=== PATIENT | female | born 1985 | race American Indian/Alaskan Native ===

== ENCOUNTER 2017-11-29 08:29 | Emergency (ER) | payer SELFPAY ==
[2017-11-29 08:40] VITALS: BP 156/109
[2017-11-29] MEDS ORDERED: MARCAINE 0.25% INFILTRATI ONE ×2 (09:36→11:42)
--- NOTE | 2017-11-29 10:32 | Emergency Department Report ---
ED Extremity Problem HPI - General Chief complaint: Extremity Injury, Upper Stated complaint: RIGHT THUMB PAIN Time Seen by Provider: 11/29/17 09:24 Source: patient Mode of arrival: Ambulatory Limitations: No Limitations - History of Present Illness Initial comments: Patient is a 32-year-old black female who states at work approximately 2 weeks ago she smacked her right thumbs fingernail. The patient states that on the corner was pulled off slightly's she pulled the rest way off and progressively has noted increased swelling to the thumb. Patient states has been no drainage. Patient states pain is a 6 out of 10 in severity as throbbing. Patient denies any fevers nausea vomiting diarrhea at this time. - Related Data Previous Rx's Medication Instructions Recorded Last Taken Type Clindamycin [Clindamycin CAP] 300 mg PO Q8H 7 Days cap 11/29/17 Unknown Rx HYDROcodone/APAP 5-325 [[place] 1 each PO Q6HR PRN #15 tablet 11/29/17 Unknown Rx 5/325] Ibuprofen [Motrin] 800 mg PO Q8HR PRN #20 tablet 11/29/17 Unknown Rx Allergies Allergy/AdvReac Type Severity Reaction Status Date / Time No Known Allergies Allergy Unverified 11/29/17 08:40 ED Review of Systems ROS: Stated complaint: RIGHT THUMB PAIN Other details as noted in HPI Comment: All other systems reviewed and negative ED Past Medical Hx - Past Medical History Hx Hypertension: Yes - Surgical History Past Surgical History?: No - Social History Smoking Status: Never Smoker - Medications Home Medications: Home Medications Medication Instructions Recorded Confirmed Last Taken Type Clindamycin [Clindamycin CAP] 300 mg PO Q8H 7 Days cap 11/29/17 Unknown Rx HYDROcodone/APAP 5-325 [[place] 1 each PO Q6HR PRN #15 tablet 11/29/17 Unknown Rx 5/325] Ibuprofen [Motrin] 800 mg PO Q8HR PRN #20 tablet 11/29/17 Unknown Rx ED Physical Exam - General Limitations: No Limitations General appearance: alert, in no apparent distress - Head Head exam: Present: atraumatic, normocephalic - Eye Eye exam: Present: normal appearance - ENT ENT exam: Present: mucous membranes moist - Neck Neck exam: Present: normal inspection - Respiratory Respiratory exam: Present: normal lung sounds bilaterally. Absent: respiratory distress, wheezes, rales, rhonchi - Cardiovascular Cardiovascular Exam: Present: regular rate, normal rhythm. Absent: systolic murmur, diastolic murmur, rubs, gallop - GI/Abdominal GI/Abdominal exam: Present: soft, normal bowel sounds. Absent: distended, tenderness, guarding, rebound - Extremities Exam Extremities exam: Absent: normal inspection (agents right thumb is swollen for some mild erythema and warmth to the pad of the finger and around the nail there is some fluctuance.) - Back Exam Back exam: Present: normal inspection - Neurological Exam Neurological exam: Present: alert, oriented X3 - Psychiatric Psychiatric exam: Present: normal affect, normal mood - Skin Skin exam: Present: warm, dry, intact, normal color. Absent: rash ED Course Vital Signs 11/29/17 08:37 Temperature 98.2 F Pulse Rate 87 Respiratory 16 Rate Blood Pressure 156/109 O2 Sat by Pulse 100 Oximetry - I & D Right Finger Type of Procedure: Simple Blade Size: 11 I & D Procedure: betadine prep, sterile drapes applied, sterile dressing applied , gauze wick placed Progress: Patient had a single stab into the pad of the finger laterally to check for a felon. Patient did not have any drainage in this area however when turning the blade closer to the area of fluctuance there was a good amount of purulent material drained. Critical care attestation.: If time is entered above; I have spent that time in minutes in the direct care of this critically ill patient, excluding procedure time. ED Disposition Clinical Impression: Paronychia Disposition: DC-01 TO HOME OR SELFCARE Is pt being admited?: No Does the pt Need Aspirin: No Condition: Stable Instructions: Abscess Incision and Drainage (ED), Abscess (ED) Forms: Work/School Release Form(ED)
== END 2017-11-29 10:35 | disposition home or self-care (01) ==
LOC: ED 08:29
DX: L03.011 Cellulitis of right finger (principal); I10 Essential (primary) hypertension

== ENCOUNTER 2020-12-25 08:22 | Emergency (ER) | payer SELFPAY ==
--- NOTE | 2020-12-25 09:43 | Emergency Department Report ---
ED Eye Problem HPI - General Chief complaint: Eye Problems Stated complaint: EYE PAINS Time Seen by Provider: 12/25/20 09:42 Source: patient Mode of arrival: Ambulatory Limitations: No Limitations - History of Present Illness Initial comments: Patient is a 35-year-old -[place]iss female that comes to the ER today with bilateral eye irritation and redness. She denies any trauma. Patient denies being around any children that were ill. She denies recent upper respiratory infection. She denies any contact with an allergen. She states that she does have seasonal rhinitis. Patient does not wear contact lenses. Although she told the triage nurse she had vision changes she denied that to me. Her globe is intact there is been no trauma EOMs are intact. There is no drainage. Patient states she did have some matting on awakening this morning. And that is why she did not go to work and she came to the emergency room. Patient's blood pressure noted to be elevated in triage. She states that in the past she has been told she had hypertension but she is on no medications. She states that she lost her insurance and has not followed up. She denies any chest pain or shortness of breath. Denies any headaches. She is neurologically intact. Patient is requesting a work note for today chief complaint: eye redness -: Gradual, days(s) If Injury: none Severity: mild Associated Symptoms: none Treatments Prior to Arrival: none - Related Data Patient Tetanus UTD: Yes Previous Rx's Medication Instructions Recorded Last Taken Type Polymyxin B Sulf/Trimethoprim 1 drop OP QID #1 bottle 12/25/20 Unknown Rx [Polytrim Eye Drops 85701yydxs/0.1%] Allergies Allergy/AdvReac Type Severity Reaction Status Date / Time No Known Allergies Allergy Unverified 11/29/17 08:40 ED Review of Systems ROS: Stated complaint: EYE PAINS Other details as noted in HPI Comment: All other systems reviewed and negative ED Past Medical Hx - Past Medical History Previous Medical History?: Yes Hx Hypertension: Yes - Surgical History Past Surgical History?: Yes Additional Surgical History: TL - Social History Smoking Status: Never Smoker - Medications Home Medications: Home Medications Medication Instructions Recorded Confirmed Last Taken Type Polymyxin B Sulf/Trimethoprim 1 drop OP QID #1 bottle 12/25/20 Unknown Rx [Polytrim Eye Drops 85823onqdt/0.1%] ED Physical Exam - General Limitations: No Limitations General appearance: alert, in no apparent distress - Head Head exam: Present: atraumatic, normocephalic - Eye Eye exam: Present: normal appearance, PERRL, EOMI - Expanded Eye Exam Expanded Eyelids: Normal Inspection: Right Pupils: Regular, Round: Right Sclera/Conjunctival: Normal Inspection: Bilateral (Mild conjunctivitis), Exudate: Bilateral (No drainage) - ENT ENT exam: Present: mucous membranes moist - Neck Neck exam: Present: normal inspection - Respiratory Respiratory exam: Present: normal lung sounds bilaterally. Absent: respiratory distress - Cardiovascular Cardiovascular Exam: Present: regular rate, normal rhythm. Absent: systolic murmur, diastolic murmur, rubs, gallop - GI/Abdominal GI/Abdominal exam: Present: soft, normal bowel sounds - Extremities Exam Extremities exam: Present: normal inspection - Back Exam Back exam: Present: normal inspection - Neurological Exam Neurological exam: Present: alert, oriented X3 - Psychiatric Psychiatric exam: Present: normal affect, normal mood - Skin Skin exam: Present: warm, dry, intact, normal color. Absent: rash ED Course Vital Signs 12/25/20 12/25/20 08:37 09:56 Temperature 98.3 F Pulse Rate 75 Respiratory 18 Rate Blood Pressure 171/108 186/98 [Right] O2 Sat by Pulse 100 Oximetry ED Medical Decision Making - Medical Decision Making Vital Signs 12/25/20 12/25/20 08:37 09:56 Temperature 98.3 F Pulse Rate 75 Respiratory 18 Rate Blood Pressure 171/108 186/98 [Right] O2 Sat by Pulse 100 Oximetry Repeat blood pressure on discharge is noted to be lowered, this is without intervention. I have had a long discussion with the patient about her blood pressure and she is to monitor it. We have discussed diet activity and hydration. We have also discussed the consequences of untreated prolonged hypertension. She verbalizes understanding. Patient being discharged home with polymyxin for her eye irritation. Have given her referral to ophthalmology should she need it. Patient discharged home. She is nonill nontoxic afebrile: Ambulatory and taking p.o. on discharge. She verbalizes understanding of discharge plan of care including monitoring her blood pressure - Differential Diagnosis Conjunctivitis: Allergic, viral, bacterial Critical care attestation.: If time is entered above; I have spent that time in minutes in the direct care of this critically ill patient, excluding procedure time. ED Disposition Clinical Impression: Conjunctivitis, Elevated blood pressure reading Disposition: DC- TO HOME OR SELFCARE Is pt being admited?: No Does the pt Need Aspirin: No Condition: Stable Instructions: Hypertension, Adult, [id number] Additional Instructions: LOW FAT AND LOW SALT DIET WALK DAILY FOLLOW YOUR BLOOD PRESSURE- ELEVATED TODAY PCP REFERRAL BELOW MED ORDERED TODAY FOR YOUR EYES IF IRRITATION PERSISTS FOLLOW UP WITH EYE ME REFERRAL BELOW Prescriptions: Polymyxin B Sulf/Trimethoprim [Polytrim Eye Drops 50214rkzyw/0.1%] 1 drop OP QID #1 bottle Referrals: YARITZA LINDER MD [Staff Physician] - 3-5 Days AUBREE CONDON MD [Staff Physician] - 3-5 Days Time of Disposition: 09:44
[2020-12-25 09:56] VITALS: BP 186/98
== END 2020-12-25 10:32 | disposition home or self-care (01) ==
LOC: ED 08:22
DX: H10.9 Unspecified conjunctivitis (principal); R03.0 Elevated blood-pressure reading, without diagnosis of hypertension; I10 Essential (primary) hypertension; Z79.899 Other long term (current) drug therapy
CPT/HCPCS: 99283

== ENCOUNTER 2021-05-03 12:57 | Emergency (ER) | payer SELFPAY ==
[2021-05-03 13:15] VITALS: BP 165/107
[2021-05-03] MEDS ORDERED: traMADol 50 MG TAB PO ONE (13:28)
[2021-05-03] MEDS ORDERED: IBUPROFEN 800 MG TAB PO ONE (13:28)
--- NOTE | 2021-05-03 13:34 | Emergency Department Report ---
ED Extremity Problem HPI - General Chief complaint: Extremity Injury, Lower Stated complaint: RT ANKLE SWOLLEN Time Seen by Provider: 05/03/21 13:19 Source: patient Mode of arrival: Ambulatory Limitations: No Limitations - History of Present Illness Initial comments: 36-year-old female, history of hypertension, presents to ED with right ankle swelling and pain. Patient states she has had some swelling in the inner aspect of the right ankle for several months, however 2 days ago, she states the ankle became diffusely swollen, with onset of pain. She denies any acute injury or any previous injury in the past. She denies any fever. MD Complaint: extremity pain, extremity swelling -: days(s) (2) Location: right, other (Ankle) -: No myalgia, Yes arthralgia, No fever, No associated dyspnea, No associated chest pain Radiation: none Quality: aching Consistency: constant Improves with: immobilization Worsens with: weight bearing, palpation Associated Symptoms: denies: chest pain, fever, myalgias - Related Data Previous Rx's Medication Instructions Recorded Last Taken Type Polymyxin B Sulf/Trimethoprim 1 drop OP QID #1 bottle 12/25/20 Unknown Rx [Polytrim Eye Drops 68869huncf/0.1%] Naproxen [Naprosyn] 500 mg PO BID #20 tablet 05/03/21 Unknown Rx traMADoL [Ultram] 50 mg PO Q6HR PRN #7 tablet 05/03/21 Unknown Rx Allergies Allergy/AdvReac Type Severity Reaction Status Date / Time No Known Allergies Allergy Verified 05/03/21 13:15 ED Review of Systems ROS: Stated complaint: RT ANKLE SWOLLEN Other details as noted in HPI Comment: All other systems reviewed and negative Constitutional: denies: fever Respiratory: denies: shortness of breath Cardiovascular: denies: chest pain Musculoskeletal: joint swelling, arthralgia ED Past Medical Hx - Past Medical History Previous Medical History?: Yes Hx Hypertension: Yes - Surgical History Additional Surgical History: TL - Social History Smoking Status: Never Smoker - Medications Home Medications: Home Medications Medication Instructions Recorded Confirmed Last Taken Type Polymyxin B Sulf/Trimethoprim 1 drop OP QID #1 bottle 12/25/20 Unknown Rx [Polytrim Eye Drops 14705rquen/0.1%] Naproxen [Naprosyn] 500 mg PO BID #20 tablet 05/03/21 Unknown Rx traMADoL [Ultram] 50 mg PO Q6HR PRN #7 tablet 05/03/21 Unknown Rx ED Physical Exam - General Limitations: No Limitations General appearance: alert, in no apparent distress, obese - Head Head exam: Present: atraumatic, normocephalic - Eye Eye exam: Present: normal appearance, EOMI - ENT ENT exam: Present: mucous membranes moist - Neck Neck exam: Present: normal inspection - Respiratory Respiratory exam: Present: normal lung sounds bilaterally. Absent: respiratory distress - Cardiovascular Cardiovascular Exam: Present: regular rate, normal rhythm - GI/Abdominal GI/Abdominal exam: Absent: distended - Extremities Exam Extremities exam: Present: other (Swelling to right ankle present, tenderness to palpation, no erythema or induration present; no tenderness to the remainder of the foot or toes) - Neurological Exam Neurological exam: Present: alert, oriented X3 - Psychiatric Psychiatric exam: Present: normal affect, normal mood - Skin Skin exam: Present: warm, dry, intact, normal color ED Course Vital Signs 05/03/21 05/03/21 13:14 13:33 Temperature 99.4 F Pulse Rate 82 Respiratory 16 16 Rate Blood Pressure 165/107 [Right] O2 Sat by Pulse 99 Oximetry - Reevaluation(s) Reevaluation #1: 05/03/21 15:46 Spoke with test lab technician. States ESR was done and result is 30. Normal is 0-20. Not sure why result is not crossing over into [facility]. - Consultations Consultation #1: 05/03/21 15:[address] Smith regarding patient's case. I informed him of lab results, temp of 99.4, inability to obtain fluid from the ankle. He is not convinced that patient has septic arthritis. Recommends discharge with splint and crutches. Weightbearing as tolerated. We will see patient in office for possible cortisone injection. - Joint Aspiration/Injection Consent Obtained: verbal consent Indications: R/O septic arthritis Side of Body: right Joint Aspirated: ankle Ultrasound Guidance: No Skin Prep: sterile prep and drape Local Anesthesia Used: Lidocaine 1% Amount of Anesthesia Used (mls): 3 Needle Size Used: 18G Total Fluid Obtained (mls): 0 Patient Tolerated Procedure: well Complications: other (unable to obtain any fluid) ED Medical Decision Making - Lab Data Result diagrams: 05/03/21 13:58 05/03/21 13:58 - Radiology Data Radiology results: report reviewed, image reviewed - Medical Decision Making 36-year-old female with right ankle pain and swelling, nontraumatic. X-ray is unremarkable, no joint pathology present. There was some concern for possible septic joint as patient has a low-grade temp of 99 upon arrival. WBC is normal. ESR and CRP slightly elevated. Uric acid is normal. Spoke with Yana Castillo. States patient can follow-up in office. DC with crutches and splint. - Differential Diagnosis Osteoarthritis, septic arthritis, gout Critical care attestation.: If time is entered above; I have spent that time in minutes in the direct care of this critically ill patient, excluding procedure time. ED Disposition Clinical Impression: Acute right ankle pain Disposition: 01 HOME / SELF CARE / HOMELESS Is pt being admited?: No Condition: Stable Instructions: Ankle Pain Prescriptions: Naproxen [Naprosyn] 500 mg PO BID #20 tablet traMADoL [Ultram] 50 mg PO Q6HR PRN #7 tablet PRN Reason: Pain Referrals: SALLY SMITH MD [Staff Physician] - [facility] Time of Disposition: 15:53
--- NOTE | 2021-05-03 14:05 | XRay Report ---
LEFT ANKLE 3 VIEWS INDICATION: pain, swelling. COMPARISON: None. IMPRESSION: There is moderate to severe diffuse soft tissue swelling or edema. Normal bone minerali zation. No acute osseous abnormality or joint pathology is detected. Large plantar spur is noted. Signer Name: Momo Sullivan Jr, MD Signed: 05/03/2021 2:00 PM Workstation Name: [id number]
[2021-05-03 14:21] LABS: Basophils % (Auto) 0.3 % (0.0-1.8); Eosinophils % (Auto) 0.1 % (0.0-4.3); Hematocrit 38.2 % (30.3-42.9); Hemoglobin 13.1 gm/dl (10.1-14.3); Lymphocytes # (Auto) 0.6 K/mm3 (1.2-5.4); Lymphocytes % (Auto) 7.6 % (13.4-35.0); Mean Corpuscular HGB Conc 34 % (30-34); Mean Corpuscular Volume 89 fl (79-97); Monocytes # (Auto) 0.6 K/mm3 (0.0-0.8); Monocytes % (Auto) 8.4 % (0.0-7.3); Platelet Count 245 K/mm3 (140-440); Red Cell Distribution Width 13.3 % (13.2-15.2)
[2021-05-03 14:31] LABS: Blood Urea Nitrogen 10 mg/dL (7-17); Calcium 8.6 mg/dL (8.4-10.2); Hemolysis Index 5
[2021-05-03 14:32] LABS: BUN/Creatinine Ratio 14
[2021-05-03 14:33] LABS: C-Reactive Protein 1.8 mg/dL (0.00-1.30); Uric Acid 5.1 mg/dL (3.5-7.6)
[2021-05-03 14:45] LABS: Erythrocyte Sedimentation Rate 30 mm/Hr (0-20)
[2021-05-03] MEDS ORDERED: LIDOCAINE (1%) 10 MG/1 ML VIAL 20 ML MDV ONE (15:21)
== END 2021-05-03 16:49 | disposition home or self-care (01) ==
LOC: ED 12:57
DX: M25.571 Pain in right ankle and joints of right foot (principal); I10 Essential (primary) hypertension; Z79.899 Other long term (current) drug therapy
CPT/HCPCS: 36415; 80048; 84550; 85025; 85652; 86140; 99284